=== PATIENT | male | born 1965 | race Caucasian/White ===

== ENCOUNTER 2016-10-02 10:36 | Inpatient (IN) | payer MEDICARE ==
[2016-10-02] VITALS (62 sets, daily range): BP systolic 48–128; RESP 12–29; TEMP 96–98; BMI 43.1
[~2016-10-02] VITALS: Ht 172.7 cm; Wt 128.4 kg
[2016-10-02] MEDS ORDERED: SODIUM CHLORIDE 0.9% 100 ML IV ONE (13:03)
[2016-10-02] MEDS ORDERED: PIPER/TAZO 3.375 GM PYXIS ONE (13:03)
[2016-10-02] MEDS ORDERED: VANCOMYCIN 2,250 MG in SODIUM CHLORIDE 0.9% 500 ML IV ONE (13:05)
[2016-10-02] MEDS ORDERED: SODIUM CHLORIDE 0.9% 500 ML IV ONE (13:08)
[2016-10-02] MEDS ORDERED: hePARIN 1,000 UNITS/ML (PORCINE) 10 ML IV PRN (13:25)
[2016-10-02] MEDS ORDERED: SODIUM CHLORIDE 0.9% 1,000 ML IV SCH (13:25)
[2016-10-02] MEDS ORDERED: GLUCAGON 1 MG VIAL IM PRN (16:35)
[2016-10-02] MEDS ORDERED: DEXTROSE 50% SYRINGE 50 ML IV PRN (16:35)
[2016-10-02] MEDS: NOREPINEPHRINE 16 MG in DEXTROSE 5% 234 ML IV SCH (17:08)
[2016-10-02] MEDS ORDERED: DEXTROSE 50% 50 ML ONE (17:11)
[2016-10-02] MEDS ORDERED: CALCIUM CHLORIDE 100 MG/ML SYR ONE (17:11)
[2016-10-02] MEDS ORDERED: humuLIN REG INSULIN ONE (17:13)
[2016-10-02] MEDS ORDERED: SOD BICARB 8.4% SYR 50 ML ONE (17:21)
[2016-10-02] MEDS ORDERED: SODIUM CHLORIDE 0.9% 1,000 ML IV ONE ×3 (17:40→19:20)
[2016-10-02] MEDS ORDERED: DEXTROSE 50% SYRINGE 50 ML IV ONE (17:45)
[2016-10-02] MEDS ORDERED: humuLIN REG INSULIN IV PUSH ONE (17:45)
[2016-10-02] MEDS ORDERED: CALCIUM CHLORIDE 100 MG/ML SYR IV PUSH ONE (17:45)
[2016-10-02] MEDS ORDERED: PHARMACY TO DOSE TOBRAMYCIN IV SCH (18:45)
[2016-10-02] MEDS ORDERED: PHARMACY TO DOSE CEFEPIME IV SCH (18:45)
[2016-10-02] MEDS ORDERED: [UNRECOGNIZED DRUG - OTHER] XX SCH (18:50)
[2016-10-02] MEDS ORDERED: PLEASE ENTER HEIGHT XX SCH (18:50)
[2016-10-02] MEDS ORDERED: ALBUMIN HUMAN 25GM (25%) 100 ML IV ONE ×2 (19:10→19:45)
[2016-10-02] MEDS ORDERED: SOD BICARB 8.4% SYR 50 ML IV ONE (19:20)
[2016-10-02] MEDS ORDERED: SODIUM CHLORIDE 0.9% IV ONE (19:45)
[2016-10-02] MEDS ORDERED: TOBRAMYCIN IV ONE (19:45)
[2016-10-02] MEDS: SOLU-CORTEF 100 MG/2 ML IV SCH (20:00)
[2016-10-02] MEDS ORDERED: FENTANYL 100 MCG/2 ML AMP ONE (21:11)
[2016-10-02] MEDS ORDERED: MIDAZOLAM 2 MG/2 ML INJ ONE (21:11)
[2016-10-02] MEDS ORDERED: MISSING DOSE XX ONE (21:55)
[2016-10-02] MEDS ORDERED: AMIODARONE 150 MG in DEXTROSE 5% 100 ML IV ONE (22:05)
[2016-10-02] MEDS ORDERED: AMIODARONE 450 MG in DEXTROSE 5% AVIVA 250 ML IV SCH (22:05)
[2016-10-02] MEDS: LINEZOLID 600 MG/300 ML 300 ML IV SCH (22:42)
[2016-10-02] MEDS: CEFEPIME 1,000 MG in SODIUM CHLORIDE 0.9% 100 ML IV SCH (23:30)
[2016-10-03] VITALS (101 sets, daily range): BP systolic 61–134; RESP 14–37; TEMP 99.8–105.5; Ht 172.7 cm; Wt 128.4 kg
[2016-10-03] MEDS: CHLORHEXIDINE 0.12% ORAL CARE FOR VENT PATIENTS 15 ML SWAB SCH ×2 (00:12→12:30)
[2016-10-03] MEDS ORDERED: MISSING DOSE XX ONE ×6 (00:15→22:50)
[2016-10-03] MEDS: SOLU-CORTEF 100 MG/2 ML IV SCH ×4 (01:45→19:08)
[2016-10-03] MEDS: NOREPINEPHRINE 16 MG in DEXTROSE 5% 234 ML IV SCH ×2 (01:45→13:42)
[2016-10-03] MEDS: VASOPRESSIN 40 UNITS in SODIUM CHLORIDE 0.9% 38 ML IV SCH ×2 (02:18→12:26)
[2016-10-03] MEDS: PROPOFOL 100 ML 100 ML IV PRN ×2 (02:24→20:30)
[2016-10-03] MEDS ORDERED: CALCIUM GLUCONATE 1,000 MG in SODIUM CHLORIDE 0.9% 100 ML IV ONE (07:45)
[2016-10-03] MEDS: LINEZOLID 600 MG/300 ML 300 ML IV SCH ×2 (07:53→20:09)
[2016-10-03] MEDS: LEVOTHYROXINE 0.1 MG TAB NG SCH (09:50)
[2016-10-03] MEDS: PANTOPRAZOLE 40 MG VIAL IV SCH (09:50)
[2016-10-03] MEDS: APIXABAN 5 MG TAB PO SCH ×2 (09:50→21:05)
[2016-10-03] MEDS: DUONEB INH SCH ×4 (11:36→22:49)
[2016-10-03] MEDS: NEB-NACL 3% 4 ML NEBU INH SCH ×3 (11:36→22:49)
[2016-10-03] MEDS: ACETAMINOPHEN 650 MG/20.3 ML UDC PO PRN ×2 (13:42→20:00)
[2016-10-03] MEDS ORDERED: SODIUM CHLORIDE 0.9% 1,000 ML IV PRN (14:45)
[2016-10-03] MEDS ORDERED: ALBUMIN HUMAN 25GM (25%) 100 ML IV PRN (14:45)
[2016-10-03] MEDS ORDERED: ONDANSETRON 4 MG VIAL IV PRN (14:45)
[2016-10-03] MEDS ORDERED: SODIUM CHLORIDE 0.9% 1,000 ML IV SCH (14:45)
[2016-10-03] MEDS ORDERED: SOD BICARB 8.4% SYR 50 ML ONE ×2 (15:39→15:59)
[2016-10-03] MEDS ORDERED: CALCIUM CHLORIDE 100 MG/ML SYR ONE (15:51)
[2016-10-03] MEDS: SODIUM BICARB 8.4% 150 ML in DEXTROSE 5% 1,000 ML IV SCH ×2 (16:42→21:48)
[2016-10-03] MEDS ORDERED: hePARIN 1,000 UNITS/ML (PORCINE) 10 ML ONE (19:18)
[2016-10-03] MEDS ORDERED: SODIUM CHLORIDE 0.9% 1,000 ML IV ONE (19:25)
[2016-10-03] MEDS: CEFEPIME 1,000 MG in SODIUM CHLORIDE 0.9% 100 ML IV SCH (21:04)
[2016-10-03] MEDS: DAKIN'S 0.125% 480 ML TOPICAL SCH (21:05)
[2016-10-03] MEDS: COLLAGENASE OINT 30 GM TOPICAL SCH (21:06)
[2016-10-03] MEDS ORDERED: AMIODARONE 450 MG in DEXTROSE 5% AVIVA 250 ML IV SCH (22:55)
[2016-10-04] VITALS (35 sets, daily range): BP systolic 77–129; RESP 12–33; TEMP 97.7–105.4
[2016-10-04] MEDS: SOLU-CORTEF 100 MG/2 ML IV SCH ×3 (00:08→13:12)
[2016-10-04] MEDS: CHLORHEXIDINE 0.12% ORAL CARE FOR VENT PATIENTS 15 ML SWAB SCH ×2 (00:09→13:12)
[2016-10-04] MEDS: ACETAMINOPHEN 650 MG/20.3 ML UDC PO PRN (01:27)
[2016-10-04] MEDS: NOREPINEPHRINE 16 MG in DEXTROSE 5% 234 ML IV SCH ×2 (02:26→11:13)
[2016-10-04] MEDS: DUONEB INH SCH ×5 (02:50→19:00)
[2016-10-04] MEDS ORDERED: MISSING DOSE XX ONE ×4 (05:05→10:50)
[2016-10-04] MEDS: LEVOTHYROXINE 0.1 MG TAB NG SCH (06:04)
[2016-10-04] MEDS: NEB-NACL 3% 4 ML NEBU INH SCH ×3 (07:07→18:30)
[2016-10-04] MEDS ORDERED: PHARMACY TO DOSE MERREM XX SCH (07:45)
[2016-10-04] MEDS ORDERED: TOBRAMYCIN IV ONE (08:50)
[2016-10-04] MEDS ORDERED: SODIUM CHLORIDE 0.9% IV ONE (08:50)
[2016-10-04] MEDS ORDERED: INSULIN DRIP 1 UNIT/ML 100 ML IV SCH (08:55)
[2016-10-04] MEDS ORDERED: MICAFUNGIN 100 MG in SODIUM CHLORIDE 0.9% 100 ML IV SCH (09:00)
[2016-10-04] MEDS: LINEZOLID 600 MG/300 ML 300 ML IV SCH (09:01)
[2016-10-04] MEDS: APIXABAN 5 MG TAB PO SCH (09:07)
[2016-10-04] MEDS: PANTOPRAZOLE 40 MG VIAL IV SCH (09:07)
[2016-10-04] MEDS: SODIUM BICARB 8.4% 150 ML in DEXTROSE 5% 1,000 ML IV SCH ×2 (09:13→15:17)
[2016-10-04] MEDS: DAKIN'S 0.125% 480 ML TOPICAL SCH (11:12)
[2016-10-04] MEDS: COLLAGENASE OINT 30 GM TOPICAL SCH (11:14)
[2016-10-04] MEDS ORDERED: AMIODARONE 200 MG TAB PO SCH (14:50)
[2016-10-04] MEDS ORDERED: AMIODARONE 900 MG in DEXTROSE 5% EXCEL 500 ML IV SCH (16:45)
[2016-10-04] MEDS ORDERED: AMIODARONE 150 MG in DEXTROSE 5% 100 ML IV ONE (16:45)
[2016-10-04] MEDS ORDERED: SOD BICARB 8.4% SYR 50 ML ONE (17:16)
[2016-10-04] MEDS ORDERED: AMIODARONE 450 MG in DEXTROSE 5% EXCEL 250 ML IV SCH (17:20)
[2016-10-04] MEDS ORDERED: [UNRECOGNIZED DRUG - OTHER] XX ONE (18:15)
== END 2016-10-04 17:22 | disposition expired | DRG 871 ==
LOC: ENRESERVTM → ENRESERVDT → ER 10:36 → EMR 13:13 → CCU 14:56
PROVIDERS: ADMIT Internal Medicine; ATTEND Internal Medicine
PROC: 05HM33Z Insertion of Infusion Device into Right Internal Jugular Vein, Percutaneous Approach (ICD-10-PCS; principal; 2016-10-02)
PROC: 5A1945Z Respiratory Ventilation, 24-96 Consecutive Hours (ICD-10-PCS; 2016-10-02)
PROC: 0BH17EZ Insertion of Endotracheal Airway into Trachea, Via Natural or Artificial Opening (ICD-10-PCS; 2016-10-02)
PROC: 05HN33Z Insertion of Infusion Device into Left Internal Jugular Vein, Percutaneous Approach (ICD-10-PCS; 2016-10-02)
PROC: 03HY32Z Insertion of Monitoring Device into Upper Artery, Percutaneous Approach (ICD-10-PCS; 2016-10-03)
PROC: 0B968ZX Drainage of Right Lower Lobe Bronchus, Via Natural or Artificial Opening Endoscopic, Diagnostic (ICD-10-PCS; 2016-10-03)
PROC: 0BC68ZZ Extirpation of Matter from Right Lower Lobe Bronchus, Via Natural or Artificial Opening Endoscopic (ICD-10-PCS; 2016-10-03)
DX: A41.9 Sepsis, unspecified organism (principal); J96.01 Acute respiratory failure with hypoxia; R65.21 Severe sepsis with septic shock; G93.41 Metabolic encephalopathy; N18.6 End stage renal disease; N17.9 Acute kidney failure, unspecified; I12.0 Hypertensive chronic kidney disease with stage 5 chronic kidney disease or end stage renal disease; E87.2 Acidosis; E66.2 Morbid (severe) obesity with alveolar hypoventilation; E11.9 Type 2 diabetes mellitus without complications; K21.9 Gastro-esophageal reflux disease without esophagitis; J44.9 Chronic obstructive pulmonary disease, unspecified; Z87.891 Personal history of nicotine dependence; Z79.82 Long term (current) use of aspirin; Z79.4 Long term (current) use of insulin; E87.5 Hyperkalemia; E11.22 Type 2 diabetes mellitus with diabetic chronic kidney disease; Z99.2 Dependence on renal dialysis
CPT/HCPCS: 31622; 36415; 36558; 36600; 36800; 71010; 80048; 80051; 80053; 80069; 80200; 82330; 82550; 82803; 82947; 83605; 83615; 83735; 84100; 84132; 84484; 85007; 85025; 85027; 86704; 86706; 87040; 87071; 87077; 87102; 87116; 87186; 87205; 87206; 87340; 88108; 89051; 92950; 93005; 94002; 94003; 94640; 94799; 96361; 96365; 99291; 99292